=== PATIENT | male | born 1940 | race Caucasian/White ===

== ENCOUNTER 2017-07-11 05:13 | Emergency (ER) | payer MEDICARE ==
[~2017-07-11] VITALS: Ht 172.7 cm; Wt 63.5 kg
[2017-07-11 05:45] VITALS: BP 141/83
[2017-07-11 06:01] LABS: BILIRUBIN,URINE NEGATIVE (NEG); GLUCOSE,URINE NEGATIVE (NEG); NITRITE,URINE POSITIVE (NEG); PH,URINE 6.5; PROTEIN,URINE NEGATIVE (NEG-TRACE); UROBILINOGEN,URINE 0.2 mg/dL (0.2 mg/dL)
[2017-07-11 06:06] LABS: BACTERIA,URINE MANY /HPF (0-FEW)
[2017-07-11] MEDS ORDERED: NITR100C62 PO (06:23)
[2017-07-11] MEDS ORDERED: ONDA4TAB10 PO (06:23)
--- NOTE | 2017-07-11 06:23 | PHYS DOC ---
Past Medical History Past Medical History: Hypertension Additional Past Medical Histor: BPH Additional Information: non smoker Social History Narrative: Lives in [place] Adult General Chief Complaint Chief Complaint: BLOOD IN URINE HPI HPI Patient is a 77 year old male who presents with blood in urine. He is presently traveling from [place] to [place] and he has to straight catheter himself 3 times a day. He is in the process of being evaluated by urology for prostatic hypertrophy. He states today this morning when he did his initial straight catheter he noticed blood in his urine. He is still draining well he states. He has no nausea or vomiting. No fever. No abdominal pain or back pain. he finished 2 weeks ago a 30 day course of antibiotics he thinks was Bactrim. He has not been on anything for the last 2 weeks. Review of Systems Review of Systems Constitutional: Denies fever or chills Eyes: Denies change in visual acuity, redness, or eye pain HENT: Denies nasal congestion or sore throat Respiratory: Denies cough or shortness of breath Cardiovascular: No chest pain GI: Denies abdominal pain, nausea, vomiting, bloody stools or diarrhea : POS hematuria; straight caths TID Musculoskeletal: Denies back pain or joint pain Integument: Denies rash or skin lesions Neurologic: Denies headache, focal weakness or sensory changes Endocrine: Denies polyuria or polydipsia Physical Exam Physical Exam Constitutional: Well developed, well nourished, no acute distress, non-toxic appearance. HENT: Normocephalic, atraumatic, bilateral external ears normal, oropharynx moist, no oral exudates, nose normal. Eyes: PERRLA, EOMI, conjunctiva normal, no discharge. Neck: Normal range of motion, no tenderness, supple, no stridor. Cardiovascular:Heart rate regular rhythm, no murmur Lungs & Thorax: Bilateral breath sounds clear to auscultation Abdomen: Bowel sounds normal, soft, no tenderness, no masses, no pulsatile masses. Skin: Warm, dry, no erythema, no rash. Back: No tenderness, no CVA tenderness. Extremities: No tenderness, no cyanosis, no clubbing, ROM intact, no edema. Neurologic: Alert and oriented X 3, normal motor function, normal sensory function, no focal deficits noted. Psychologic: Affect normal, judgement normal, mood normal. Current Patient Data Lab Values Laboratory Tests Test 07/11/17 05:51 Urine Collection Type Void Urine Color Yellow Urine Clarity Clear Urine pH 6.5 Urine Specific Taylor 1.015 Urine Protein Negative mg/dL (NEG-TRACE) Urine Glucose (UA) Negative mg/dL (NEG) Urine Ketones (Stick) Negative mg/dL (NEG) Urine Blood Small (NEG) Urine Nitrite Positive (NEG) Urine Bilirubin Negative (NEG) Urine Urobilinogen Dipstick 0.2 mg/dL (0.2 mg/dL) Urine Leukocyte Esterase Moderate (NEG) Urine RBC 11-20 /HPF (0-2) Urine WBC 11-20 /HPF (0-4) Urine Bacteria Many /HPF (0-FEW) Urine Mucus Slight /LPF Course & Med Decision Making Course & Med Decision Making Urinalysis was sent. It was positive. He is given a shot of Rocephin here and started on his first dose of Macrobid. He will continue to travel today to [place]. Written prescriptions. He has no evidence of sepsis at this time. I have spoken with the patient and/or caregivers. I have explained the patient' s condition, diagnosis and treatment plan based on the information available to me at this time. I have answered the patient's and/or caregiver's questions and addressed any concerns. The patient and/or caregivers have as good an understanding of the patient's diagnosis, condition and treatment plan as can be expected at this point. The patient's condition is stable and appropriate for discharge from the emergency department. The patient will pursue further outpatient evaluation with the primary care physician or other designated or consulting physician as outlined in the discharge instructions. The patient and/or caregivers are agreeable to this plan of care and follow-up instructions have been explained in detail. The patient and/or caregivers have received these instructions in written format and have expressed an understanding of the discharge instructions. The patient and/or caregivers are aware that any significant change in condition or worsening of symptoms should prompt an immediate return to this or the closest emergency department or a call to 911. Dragon Disclaimer Dragon Disclaimer This electronic medical record was generated, in whole or in part, using a voice recognition dictation system. Departure Departure Impression: Primary Impression: Urinary tract infection Disposition: HOME, SELF-CARE Condition: STABLE Referrals: NO PCP (PCP) Patient Instructions: Urinary Tract Infection Additional Instructions: You were given a shot of Rocephin here. You were given your first dose of Macrobid which is the antibiotic pill. I did write a prescription for Zofran if you have any nausea. You need to fill the prescription of Macrobid to continue that until finished. His urine was sent for culture when he returned home ureter probably just can contact [facility] for medical records to determine the culture results. Scripts Nitrofurantoin Monohyd/M-Cryst (MACROBID 100 MG CAPSULE) 100 Mg Capsule 1 CAP PO BID, #20 CAP Prov: CHALO SNYDER MD 07/11/17 Ondansetron (ZOFRAN ODT) 4 Mg Tab.rapdis 4 MG PO BID Y for NAUSEA/VOMITING, #10 TAB Prov: CHALO SNYDER MD 07/11/17 Problem Qualifiers Primary Impression: Urinary tract infection Urinary tract infection type: acute cystitis Hematuria presence: with hematuria Qualified Codes: N30.01 - Acute cystitis with hematuria CHALO SNYDER MD Jul 11, 2017 06:23
[2017-07-11] MEDS ORDERED: NITROFURANTOIN MONOHYD/M-CRYST 100 MG CAPSULE. PO ONE (06:30)
[2017-07-11] MEDS ORDERED: cefTRIAXone IM 1 GM VIAL IM ONE (06:30)
[2017-07-11] MEDS ORDERED: LIDOCAINE 1% PF 2 ML VIAL. ONE (06:45)
[2017-07-11] MEDS ORDERED: LISI1TAB3 PO (06:46)
[2017-07-11] MEDS ORDERED: FINA5TAB4 PO (06:47)
[2017-07-11] MEDS ORDERED: TAMS0.4C97 PO (06:47)
== END 2017-07-11 07:11 | disposition home or self-care (01) ==
LOC: ER 05:13
DX: N30.01 Acute cystitis with hematuria (principal); I10 Essential (primary) hypertension
CPT/HCPCS: 81001; 87086; 87186; 96372; 99284; J0696